=== PATIENT | male | born 1950 | race Caucasian/White ===

== ENCOUNTER 2021-01-10 18:43 | Emergency (ER) | payer OTHER ==
[~2021-01-10] VITALS: Ht 172.7 cm; Wt 102.1 kg
[2021-01-10] MEDS ORDERED: LIPITOR10 MG PO (19:16)
[2021-01-10] MEDS ORDERED: ASA81BEC PO (19:17)
[2021-01-10 21:42] VITALS: BP 124/76
== END 2021-01-10 21:43 | disposition home or self-care (01) ==
LOC: ER 18:43
DX: S70.02XA Contusion of left hip, initial encounter (principal); S80.02XA Contusion of left knee, initial encounter; S40.012A Contusion of left shoulder, initial encounter; E78.00 Pure hypercholesterolemia, unspecified; Z79.82 Long term (current) use of aspirin; Z79.899 Other long term (current) drug therapy; V29.9XXA Motorcycle rider (driver) (passenger) injured in unspecified traffic accident, initial encounter; Y93.89 Activity, other specified; Y92.89 Other specified places as the place of occurrence of the external cause; Y99.8 Other external cause status